=== PATIENT | male | born 1985 | race African-American/Black ===

== ENCOUNTER 2019-10-27 16:05 | Inpatient (IN) | payer OTHER, SELFPAY ==
[~2019-10-27 16:05] MED LIST: Iopamidol-370 76% 500 ML 1 ML ONE
[2019-10-27] MEDS ORDERED: Fentanyl 100 MCG/2 ML VIAL ONE ×2 (16:11→18:57)
[2019-10-27] MEDS ORDERED: Adacel (T-DAP) 0.5 ML SYRINGE ONE (16:25)
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
[2019-10-27 16:38] LABS: #Basophils 0.1 thou/uL (0.0-0.2); #Eosinphils 0.8 thou/uL (0.0-0.7); #Neutrophils 7.9 thou/uL (1.40-6.50); %Basophils 0.5 % (0.0-1.0); %Eosinophils 6.1 % (0.0-10.0); %Lymphocytes 23.7 % (21.0-51.0); %Monocytes 7.7 % (0.0-10.0); %Neutrophils 61.9 % (42.0-75.0); Hemoglobin 13.7 g/dL (14.0-18.0); Mean Corpuscular HGB CONC 31.2 g/dL (32.0-36.0); Mean Corpuscular Hemoglobin 25.6 pg (27.0-31.0); Mean Corpuscular Volume 81.9 fL (78.0-98.0); Mean Platelet Volume 10.1 fL (7.4-10.4); Platelet Count 188 thou/uL (130-400); RBC Distribution Width 13.9 % (11.5-14.5); Red Blood Cell (RBC) Count 5.37 mill/uL (4.70-6.10); White Blood Cell (WBC) Count 12.8 thou/uL (4.8-10.8)
[2019-10-27 16:52] LABS: ALT (SGPT) 33 U/L (8-55); AST (SGOT) 50 U/L (5-34); Albumin 4.2 g/dL (3.5-5.0); Alcohol Less than 10 mg/dL (Less than 10); Alkaline Phosphatase 119 U/L (40-110); Anion Gap 11 mmol/L (10-20); BUN (Urea Nitrogen) 11 mg/dL (8.9-20.6); Calc. Creatinine Clearance 0 mL/min (70-130); Calcium 8.9 mg/dL (7.8-10.44); Carbon Dioxide 28 mmol/L (22-29); Chloride 104 mmol/L (98-107); Estimated GFR-MDRD 49; Globulin 3.1 g/dL (2.4-3.5); Glucose 136 mg/dL (70-105); Lipase 16 U/L (8-78); Potassium 3.9 mmol/L (3.5-5.1); Protein, Total 7.3 g/dL (6.0-8.3); Sodium 139 mmol/L (136-145)
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
[2019-10-27] MEDS ORDERED: Lidocaine 1% (PF) 30 ML VIAL ONE (17:59)
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
[2019-10-27] MEDS ORDERED: HYDROmorphone 0.5 MG/0.5 ML SYRINGE ONE (20:27)
[2019-10-27] MEDS ORDERED: Promethazine HCl 25 MG/ML VIAL IVPB PRN (20:30)
[2019-10-27] MEDS ORDERED: Dextrose 5% in Water 1,000 ML IV PRN (20:30)
[2019-10-27] MEDS ORDERED: Dextrose 50% Abboject 50 ML SYRINGE SLOW IVP PRN (20:30)
[2019-10-27] MEDS ORDERED: hydrALAZINE 20 MG/ML VIAL SLOW IVP PRN (20:30)
[2019-10-27] MEDS ORDERED: Ondansetron ODT 4 MG TAB PO PRN (20:30)
[2019-10-27] MEDS ORDERED: traMADol HCl 50 MG TAB PO PRN (20:37)
[2019-10-27] MEDS ORDERED: Promethazine HCl 12.5 MG in Sodium Chloride 0.9% 50 ML IVPB PRN ×2 (20:52→20:53)
[2019-10-27] MEDS ORDERED: Sodium Chloride 0.9% 1,000 ML IV SCH (21:00)
[2019-10-27] MEDS: Morphine 4 MG/ML VIAL SLOW IVP PRN (21:37)
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
[2019-10-27] MEDS: Senokot S 8.6-50 MG TAB PO SCH (23:45)
[2019-10-27 23:48] VITALS: BMI 33.5
[2019-10-28] MEDS: Acetaminophen 500 MG TAB PO SCH ×4 (00:25→17:32)
[2019-10-28] MEDS: Morphine 4 MG/ML VIAL SLOW IVP PRN ×2 (03:01→08:45)
[2019-10-28] MEDS: Cyclobenzaprine 10 MG TAB PO PRN ×2 (05:09→17:32)
[2019-10-28 06:00] LABS: Hemoglobin 13.4 g/dL (14.0-18.0); Mean Corpuscular HGB CONC 30.6 g/dL (32.0-36.0); Mean Corpuscular Hemoglobin 25.3 pg (27.0-31.0); Mean Corpuscular Volume 82.6 fL (78.0-98.0); Mean Platelet Volume 9.6 fL (7.4-10.4); Platelet Count 159 thou/uL (130-400); RBC Distribution Width 14.1 % (11.5-14.5); White Blood Cell (WBC) Count 10.7 thou/uL (4.8-10.8)
[2019-10-28 06:33] LABS: Anion Gap 12 mmol/L (10-20); BUN (Urea Nitrogen) 13 mg/dL (8.9-20.6); Calc. Creatinine Clearance 134 mL/min (70-130); Calcium 8.6 mg/dL (7.8-10.44); Carbon Dioxide 27 mmol/L (22-29); Chloride 104 mmol/L (98-107); Estimated GFR-MDRD 90; Glucose 134 mg/dL (70-105); Magnesium 1.9 mg/dL (1.6-2.6); Phosphorus 3.5 mg/dL (2.3-4.7); Potassium 4.2 mmol/L (3.5-5.1); Sodium 139 mmol/L (136-145)
[2019-10-28 06:38] LABS: #Eosinphils 0.1 thou/uL (0.0-0.7); #Lymphocytes 1.8 thou/uL (1.20-3.40); #Monocytes 1.3 thou/uL (0.11-0.59); #Neutrophils 7.5 thou/uL (1.40-6.50); %Basophils 0.4 % (0.0-1.0); %Eosinophils 1.3 % (0.0-10.0); %Lymphocytes 16.6 % (21.0-51.0); %Monocytes 11.8 % (0.0-10.0); %Neutrophils 69.9 % (42.0-75.0)
[2019-10-28] MEDS: Senokot S 8.6-50 MG TAB PO SCH ×2 (08:39→19:59)
[2019-10-28] MEDS: Polyethylene Glycol 3350 17 GM Packet PO SCH (08:40)
[2019-10-28] MEDS ORDERED: Morphine 4 MG/ML VIAL IV PRN (09:16)
[2019-10-28] MEDS: traMADol HCl 50 MG TAB PO PRN ×2 (11:18→17:32)
[2019-10-28] MEDS: Sodium Chloride 0.9% 1,000 ML IV SCH ×2 (11:18→19:59)
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
[2019-10-28] MEDS: Chlorhexidine Gluconate 15 ML UDCUP SSP SCH (19:59)
[2019-10-28] MEDS: Famotidine/PF 20 mg/2ml Vial SLOW IVP SCH (19:59)
[2019-10-28] MEDS ORDERED: Ibuprofen 600 MG TAB PO SCH (20:00)
[2019-10-28] MEDS: traMADol HCl 50 MG TAB PO SCH (21:45)
[2019-10-29] MEDS: Acetaminophen 500 MG TAB PO SCH ×3 (01:09→12:00)
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
[2019-10-29] MEDS: traMADol HCl 50 MG TAB PO SCH ×2 (02:30→08:33)
[2019-10-29] MEDS: Cyclobenzaprine 10 MG TAB PO PRN (02:30)
[2019-10-29] MEDS: Sodium Chloride 0.9% 1,000 ML IV SCH (02:31)
[2019-10-29] MEDS ORDERED: Ibuprofen 600 MG TAB PO SCH (06:00)
[2019-10-29 06:46] LABS: Chloride 107 mmol/L (98-107); Potassium 3.7 mmol/L (3.5-5.1); Sodium 139 mmol/L (136-145)
[2019-10-29 06:47] LABS: Calcium 7.9 mg/dL (7.8-10.44); Glucose 100 mg/dL (70-105)
[2019-10-29 06:49] LABS: Anion Gap 11 mmol/L (10-20); Carbon Dioxide 25 mmol/L (22-29)
[2019-10-29 06:51] LABS: Calc. Creatinine Clearance 163 mL/min (70-130); Estimated GFR-MDRD Greater than 90; Phosphorus 3.1 mg/dL (2.3-4.7)
[2019-10-29 06:52] LABS: BUN (Urea Nitrogen) 11 mg/dL (8.9-20.6)
[2019-10-29] MEDS: Chlorhexidine Gluconate 15 ML UDCUP SSP SCH (08:32)
[2019-10-29] MEDS: Famotidine/PF 20 mg/2ml Vial SLOW IVP SCH (08:32)
[2019-10-29] MEDS: Polyethylene Glycol 3350 17 GM Packet PO SCH (08:37)
[2019-10-29] MEDS: Senokot S 8.6-50 MG TAB PO SCH (08:37)
[2019-10-29 12:14] VITALS: BP 154/80; TEMP 98.1
[2019-10-29] MEDS ORDERED: Enoxaparin Sodium 40 MG/0.4 ML SYRINGE SC SCH (12:15)
[2019-10-30] MEDS ORDERED: Enoxaparin Sodium 40 MG/0.4 ML SYRINGE SC SCH (09:00)
== END 2019-10-29 14:12 | disposition home or self-care (01) | DRG 86 ==
LOC: ERS 16:05 → SJJU 20:35
PROVIDERS: ADMIT Surgery; ATTEND Surgery
PROC: 0CQ1XZZ Repair Lower Lip, External Approach (ICD-10-PCS; principal; 2019-10-27)
DX: S02.121A Fracture of orbital roof, right side, initial encounter for closed fracture (principal); S04.011A Injury of optic nerve, right eye, initial encounter; S82.141A Displaced bicondylar fracture of right tibia, initial encounter for closed fracture; N17.9 Acute kidney failure, unspecified; S06.0X9A Concussion with loss of consciousness of unspecified duration, initial encounter; S06.0X0A Concussion without loss of consciousness, initial encounter; S01.511A Laceration without foreign body of lip, initial encounter; R40.2412 Glasgow coma scale score 13-15, at arrival to emergency department; S82.831A Other fracture of upper and lower end of right fibula, initial encounter for closed fracture; V60.5XXA Driver of heavy transport vehicle injured in collision with pedestrian or animal in traffic accident, initial encounter
CPT/HCPCS: 12011; 29505; 36415; 70450; 70486; 71045; 71260; 72125; 72170; 74177; 80048; 80053; 80307; 82550; 83605; 83690; 83735; 84100; 85025; 86850; 86900; 86901; 90471; 90715; 93005; 96365; 96374; 96375; 96376; G0390; J0690; J1170; J1650; J2001; J2270; J3010; Q9967; S0028